=== PATIENT | female | born 1960 | race Caucasian/White ===

== ENCOUNTER 2021-07-08 20:36 | Emergency (ER) | payer MEDICAID ==
[~2021-07-08] VITALS: Ht 157.5 cm; Wt 63.0 kg
[~2021-07-08 20:36] MED LIST: ATEN-175
[2021-07-08 21:17] VITALS: BP 244/129
[2021-07-08] MEDS ORDERED: ACETAMINOPHEN 325MG TABLET PO ONE (22:45)
[2021-07-08] MEDS ORDERED: TETANUS, DIPHTHERIA, PERTUSSIS VAC/PF 0.5ML (>10YR OLD) IM ONE (22:45)
== END 2021-07-09 00:40 | disposition left against medical advice (07) ==
LOC: ER 20:36
DX: R42 Dizziness and giddiness (principal); M79.645 Pain in left finger(s)
CPT/HCPCS: 93005; 99281